=== PATIENT | male | born 1940 | race Caucasian/White ===

== ENCOUNTER → 2016-10-31 06:37 | Day surgery (SDC) | payer MEDICARE ==
[~2016-10-31 06:37] MED LIST: Acetaminophen TAB* 325 MG PO PRN; Buffered Lidocaine 1% SYRIN* 3 ML/SYR SYRINGE INTRADERM ONE; Cyclopentolate 1% OPTH.SOL* 2 ML BTL ONE; Flurbiprofen 0.03% OPTH.SOL* 2.5 ML BTL ONE; Lidocaine 1% MPF* 2 ML VIAL ONE; Lidocaine 2% EPI 1:200000 MPF* 20 ML VIAL ONE; Midazolam* 1 MG/ML 2 ML VIAL (2 MG) ONE; Neomycin/Polymy/Dex OPTH.SUSP* MAXITROL 0.1% 5 ML ONE; Phenylephrine 2.5% OPTH.SOL* 2 ML BTL ONE; Povidone Iodine 5% OPTH* 30 ML BTL ONE; Proparacaine 0.5% OPHTH.SOL* 15 ML BTL ONE; acetaZOLAMIDE TAB* 250 MG ONE; fentaNYL* 50 MCG/ML 2 ML VIAL (100 MCG VIAL) ONE
[2016-10-31 09:02] VITALS: BP 115/60
--- NOTE | 2016-10-31 16:27 | OP ---
DATE OF OPERATION: 10/31/16 - [facility] DATE OF : 38 SURGEON: Pablo Lackey M.D. PREOPERATIVE DIAGNOSIS: Cataract, right eye. POSTOPERATIVE DIAGNOSIS: Cataract, right eye. OPERATIVE PROCEDURE: Phacoemulsification, right eye with IOL. DESCRIPTION OF PROCEDURE: The patient was brought to the operating room after being given 1/2% Alcaine with epinephrine drops in the preoperative area. The eye was prepped and draped in the usual sterile fashion. Sterile drape and eyelid speculum were placed. Again, topical 1/2% Alcaine with epinephrine was given. A paracentesis incision was made at the 9 o'clock position with the No.75 blade. Clear cornea incision 2.2 x 2.2-mm was created at the 12 o'clock position starting at the anterior limbus using the 2.2-mm keratome. The anterior chamber was irrigated with 0.4 mL of 1% non-preservative intracameral lidocaine and filled with DisCoVisc. A capsulorrhexis was completed using the cystotome and the Utrata forceps. Hydrodissection was performed with balanced salt solution. The lens nucleus was removed with the Phacoemulsification handpiece without incident. Cortex was removed with the irrigation-aspiration handpiece. The capsular bag was re-inflated using DisCoVisc and an [id number] implant was inserted with the shooter. The irrigation-aspiration handpiece was used to remove all residual DisCoVisc. The eye was refilled with balanced salt solution and the wound checked and found to be watertight. Topical Maxitrol drops were given. [id number] #: [id number] [facility]
== END | disposition home or self-care (01) ==
LOC: OREAST 06:37
PROVIDERS: ATTEND Specialist
DX: H25.811 Combined forms of age-related cataract, right eye (principal); H35.363 Drusen (degenerative) of macula, bilateral; H35.62 Retinal hemorrhage, left eye; H43.813 Vitreous degeneration, bilateral; H01.021 Squamous blepharitis right upper eyelid; H01.022 Squamous blepharitis right lower eyelid; H01.024 Squamous blepharitis left upper eyelid; H01.025 Squamous blepharitis left lower eyelid; I10 Essential (primary) hypertension; J45.909 Unspecified asthma, uncomplicated; Z87.891 Personal history of nicotine dependence
CPT/HCPCS: J2250; J3010; V2632

== ENCOUNTER 2016-12-21 08:36 | Emergency (ER) | payer MEDICARE ==
[2016-12-21 08:49] VITALS: BP 117/55
--- NOTE | 2016-12-21 10:44 | UC ---
Skin Complaint HPI - HPI Summary HPI Summary: IN LATE NOVEMBER HAD TICK BITES AND TICKS REMOVED. ON 12/12/16 SEEN HERE FOR RED CIRCULAR AREA ON BACK, NO FEVER OR MUSCLE ACHES. TREATED WITH STEROID CREAM. NOW RED AREA IS SPREADING AND GETTING MORE TENDER AND WARMER. CONCERN FOR LYME DISEASE. NO FEVER. NO NEW MUSCLE OR NEW JOINT ACHES. - History of Current Complaint Chief Complaint: UCSkin Time Seen by Provider: 12/21/16 09:54 Stated Complaint: RASH Hx Obtained From: Patient, Family/Urologist Physician Onset/Duration: Gradual Onset, Lasting Weeks, Still Present Skin Exposure Onset/Duration: Weeks Ago Onset Severity: Mild Current Severity: Moderate Pain Intensity: 0 Pain Scale Used: 0-10 Numeric Location: Discrete - RIGHT SHOULDER/BACK Character: Swelling, Redness Aggravating: Touch Alleviating: Nothing Associated Signs & Symptoms: Positive: Rash, Tenderness. Negative: Difficulty Breathing, Fever, Chills, Cough, Chest Pain, Hoarseness, Throat Tightening, Drainage, Joint Swelling Related History: Insect Bite/Sting, Possible Reaction to: Insect, Possible Reaction to: Environmental Exposure - Allergy/Home Medications Allergies/Adverse Reactions: Allergies Allergy/AdvReac Type Severity Reaction Status Date / Time No Known Allergies Allergy Verified 12/21/16 08:49 Review of Systems Constitutional: Negative Skin: Rash Eyes: Negative ENT: Negative Respiratory: Negative Cardiovascular: Negative Gastrointestinal: Negative Genitourinary: Negative Motor: Negative Neurovascular: Negative Musculoskeletal: Negative Neurological: Negative Psychological: Negative All Other Systems Reviewed And Are Negative: Yes PMH/Surg Hx/FS Hx/Imm Hx Previously Healthy: Yes Endocrine History Of: Denies: Diabetes, Thyroid Disease Cardiovascular History Of: Reports: Hypertension - CONTROLLED WITH MEDICATION Denies: Cardiac Disorders Respiratory History Of: Reports: COPD, Asthma - controlled with medication, GI/ History Of: Denies: Ulcer Cancer History Of: Reports: Prostate Cancer - Surgical History Surgical History: Yes Surgery Procedure, Year, and Place: prostatectomy 2010 - Family History Known Family History: Positive: Hypertension - Social History Occupation: Retired Lives: With Family Alcohol Use: Occasionally Substance Use Type: None Smoking Status (MU): Former Smoker Type: Cigars When Did the Patient Quit Smoking/Using Tobacco: 1997 Physical Exam Triage Information Reviewed: Yes Appearance: Well-Appearing, No Pain Distress, Well-Nourished Vital Signs: Initial Vital Signs Temp 97.8 F 12/21/16 08:44 Pulse 68 12/21/16 08:44 Resp 18 12/21/16 08:44 BP 117/55 12/21/16 08:44 Pulse Ox 98 12/21/16 08:44 Vital Signs Reviewed: Yes Eye Exam: Normal ENT Exam: Normal ENT: Positive: Normal ENT inspection, Hearing grossly normal, Pharynx normal, TMs normal Dental Exam: Normal Neck exam: Normal Neck: Positive: Supple, Nontender Respiratory Exam: Normal Respiratory: Positive: Chest non-tender, Lungs clear, Normal breath sounds, No respiratory distress, No accessory muscle use Cardiovascular Exam: Normal Cardiovascular: Positive: RRR, No Murmur, Pulses Normal Abdominal Exam: Normal Musculoskeletal Exam: Normal Musculoskeletal: Positive: Strength Intact, ROM Intact Neurological Exam: Normal Psychological Exam: Normal Psychological: Positive: Normal Response To Family Skin: Positive: rashes - RIGHT SHOULDER/UPPER BACK ERRETHEMATOUS WARM 12 CM X 12 CM CIRCULAR TENDER RASH WITH DARKER 2CM X 2CM CENTER SUGGESTIVE OF INITIAL INSECT BITE Course/Dx - Differential Diagnoses - Skin Complaint Differential Diagnoses: Allergic Reaction, Cellulitis, Contact Dermatitis, Tick Born Illness, Tinea, Varicella Zoster, Other - ERYTHEMA MIGRANS - Diagnoses Provider Diagnoses: POSSIBLE ERYTHEMA MIGRANS RIGHT SHOULDER Discharge - Discharge Plan Condition: Stable Disposition: HOME Prescriptions: DOXYcycline CAP(*) [DOXYcycline 100MG CAP(*)] 100 mg PO BID #42 cap Patient Education Materials: Lyme Disease (ED), Tick Bite (ED) Referrals: Jd Johnston MD [Primary Care Provider] - Images Front/Back of Body, Lg ([place]): 1 - RIGHT SHOULDER/UPPER BACK ERRETHEMATOUS WARM 12 CM X 12 CM CIRCULAR TENDER RASH WITH DARKER 2CM X 2CM CENTER SUGGESTIVE OF INITIAL INSECT BITE
== END 2016-12-21 10:32 | disposition home or self-care (01) ==
LOC: UCEAST 08:36
DX: R21 Rash and other nonspecific skin eruption (principal)
CPT/HCPCS: 99212; G0463